=== PATIENT | male | born 1955 | race Caucasian/White ===

== ENCOUNTER 2019-05-28 11:10 | Inpatient (IN) ==
[2019-05-28] MEDS ORDERED: ATARAX PO PRN (12:52)
[2019-05-28] MEDS ORDERED: SINEMET 25/100 PO PRN (12:52)
[2019-05-28] MEDS ORDERED: ROBAXIN PO PRN (12:52)
[2019-05-28] MEDS ORDERED: MOTRIN PO PRN (12:52)
[2019-05-28] MEDS ORDERED: BENTYL PO PRN (12:52)
[2019-05-28] MEDS ORDERED: LIBRIUM PO PRN (12:52)
[2019-05-28] MEDS ORDERED: DULCOLAX PR PRN (12:52)
[2019-05-28] MEDS ORDERED: D5W 1,000 ML IV PRN (12:52)
[2019-05-28] MEDS ORDERED: TYLENOL PO PRN (12:52)
[2019-05-28] MEDS ORDERED: TUBERSOL ID ONE (12:52)
[2019-05-28] MEDS ORDERED: SEROQUEL PO PRN (12:52)
[2019-05-28] MEDS ORDERED: SENOKOT PO PRN (12:52)
[2019-05-28] MEDS ORDERED: MAALOX PLUS LIQUID PO PRN (12:52)
[2019-05-28] MEDS ORDERED: ZOFRAN IV PRN (12:52)
[2019-05-28] MEDS ORDERED: PHENOBARBITAL IV PRN (12:52)
[2019-05-28] MEDS ORDERED: IMODIUM PO PRN (12:52)
[2019-05-28] MEDS ORDERED: DESYREL PO PRN (12:52)
[2019-05-28] MEDS ORDERED: SUBOXONE 2 MG/0.5 MG FILM SL SCH (13:00)
[2019-05-28 14:30] LABS: AMYLASE 31 U/L (20-200); LIPASE 22 U/L (13-60)
[2019-05-28 14:44] LABS: AGAP 12; ALBUMIN 4.4 g/dL (3.5-5.0); ALKALINE PHOSPHATASE 69 U/L (32-122); BUN 23 mg/dL (8-22); CHLORIDE 100 mmol/L (98-107); COSMO 276; ESTIMATED GFR > 60; GLUCOSE 96 mg/dL (70-104); GOT 27 U/L (10-34); GPT 11 U/L (10-44); POTASSIUM 5.2 mmol/L (3.5-5.1); SODIUM 136 mmol/L (136-145); TCO2 23 mmol/L (25-35); TOTAL PROTEIN 7.6 g/dL (6.3-8.3)
[2019-05-28 14:52] LABS: UR AMPHETAMINES QUAL NONE DETECTED (NONE DETECT); UR BARBITUATES QUAL NONE DETECTED (NONE DETECT); UR BENZODIAZEPIN QUAL PRESUMPTIVE POSITIVE (NONE DETECT); UR CANNABINOIDS QUAL NONE DETECTED (NONE DETECT); UR COCAINE QUAL NONE DETECTED (NONE DETECT); UR METHADONE QUAL NONE DETECTED (NONE DETECT); UR METHAMPHETAMINE QUAL NONE DETECTED (NONE DETECT); UR OPIATES QUAL PRESUMPTIVE POSITIVE (NONE DETECT); UR OXYCODONE QUAL NONE DETECTED (NONE DETECT); UR PCP QUAL NONE DETECTED (NONE DETECT); UR PROPOXYPHENE QUAL NONE DETECTED (NONE DETECT); UR TCA QUAL NONE DETECTED (NONE DETECT)
[2019-05-28] MEDS: NICODERM PATCH TD PRN (15:28)
[2019-05-28 15:46] LABS: URINE SOURCE VOIDED
[2019-05-28 15:52] LABS: BILIRUBIN URINE NEGATIVE (NEGATIVE); BLOOD URINE NEGATIVE (NEGATIVE); GLUCOSE URINE NEGATIVE (NEGATIVE); KETONE URINE NEGATIVE (NEGATIVE); LEUKOCYTES URINE NEGATIVE (NEGATIVE); NITRITE URINE NEGATIVE (NEGATIVE); PH URINE 6.5; PROTEIN URINE NEGATIVE (NEGATIVE); UROBILINOGEN URINE NORMAL
[2019-05-28 15:53] LABS: CLARITY SL. CLOUDY (CLEAR); COLOR YELLOW
[2019-05-28 15:54] LABS: URINE BACTERIA 1+ /HFP; URINE CAST NONE SEEN /LPF; URINE CRYSTAL NONE SEEN /HPF; URINE EPITHELIAL CELLS <10 /HPF (<10); URINE YEAST NONE SEEN /HPF
[2019-05-29] MEDS: SUBOXONE 2 MG/0.5 MG FILM SL SCH ×2 (01:49→16:55)
[2019-05-29] MEDS: ZOFRAN ODT PO PRN ×2 (04:58→21:32)
[2019-05-29] MEDS: PROTONIX PO SCH ×2 (05:47→06:54)
[2019-05-29] MEDS ORDERED: NS 1,000 ML IV SCH (07:00)
[2019-05-29] MEDS ORDERED: THERA M PLUS PO SCH (09:00)
[2019-05-29] MEDS ORDERED: FOLIC ACID PO SCH (09:00)
[2019-05-29] MEDS ORDERED: VITAMIN B-1 PO SCH (09:00)
--- NOTE | 2019-05-29 09:56 | HISTORY AND PHYSICAL ---
HISTORY: Patient notes that he has been abusing opiates consistently for over 2 years. He has been trying to stop. He has been having nausea, vomiting, abdominal pain, and myalgias. He had to start reusing secondary to withdrawal symptoms. Denies any fevers or chills. SOCIAL HISTORY: Patient is single. He is on disability. Lives at home in [place]. PAST MEDICAL HISTORY: Chronic pain which is where he started using the opiates, and then began abusing. MEDICATIONS: He has no prescription medications. ALLERGIES: No known drug allergies. REVIEW OF SYSTEMS: CIMA score is 17 secondary to nausea, vomiting, and paresthesias, clammy skin, sniffling, watery eyes, frequently yawning, and unable to sit, fidgeting, constantly moving about. He notes that his symptoms are early. [*]the past 24 hours. States that if it goes much longer, the nausea and vomiting become severe with abdominal cramping and dry heaves. He notes that he starts sweating profusely until he uses. Denies any headaches or blurred vision. Denies any focalized numbness, tingling, or weakness in his extremities. Denies dysuria, urinary frequency, urgency, hesitancy, polyuria or polydipsia. Denies skin rashes, weight loss or weight gain. SUBSTANCE ABUSE HISTORY: The patient has never been in treatment facility before. He started drinking at 15. Currently, drinks only occasionally. Started marijuana at 16. Currently uses [*] He tried hallucinogens recreationally at 16. He has not used in 20 years. Started opiates after an injury at age 38. Currently, is up to 120 pills or so of oxycodone a month, and has been using 2 g a week of IV heroin. Started smoking at 16, and currently smokes 2 packs a day. FAMILY HISTORY: Noncontributory. PHYSICAL EXAMINATION: VITAL SIGNS: Reviewed and stable. He is awake and alert. He is in no distress. He is visibly sweating. He is moving about, and has difficulty concentrating. HEENT: Normocephalic. NECK: Supple. CARDIOVASCULAR: Regular rate. No murmurs. CHEST: Clear and nonlabored. ABDOMEN: Soft. Nondistended. EXTREMITIES: Moves all extremities. NEUROLOGIC: No changes. ASSESSMENT: 1. Nausea and vomiting. 2. Abdominal pain. 3. Myalgias. 4. Paresthesias. 5. Paroxysmal sweating. 6. Opiate abuse withdrawal and stabilization. 7. Chronic tobacco abuse. 8. Paroxysmal sweating. PLAN: Discussed with patient the perils of smoking as well as ways to stop. Discussed with him the use of Suboxone to alleviate his withdrawal symptoms. Discussed weaning off Suboxone for long- term use for withdrawal. Discussed outpatient counseling, avoidance etc. We will continue to follow. cc: Antonio Barahona MD
[2019-05-29] MEDS: NICODERM PATCH TD PRN (13:56)
--- NOTE | 2019-05-29 21:46 | PROGRESS NOTE ---
DATE: 05/29/2019 SUBJECTIVE: Patient notes he is feeling a little bit better. Denies any fevers or chills. Denies any chest pain or palpitations. PHYSICAL EXAMINATION: Vital Signs: Reviewed. Temperature 97.9, pulse 92, respiratory 18, BP 110/50. General: Patient is awake, alert, very pleasant, in no distress. HEENT: Normocephalic. Neck: Supple. Cardiovascular: Regular rate. No murmurs. Chest: Clear, nonlabored. Abdomen: Soft, nondistended. Extremities: Moves all extremities well. ASSESSMENT: 1. Nausea, vomiting and abdominal pain. 2. Myalgias. 3. Paresthesias. 4. Paroxysmal sweating. 5. Opiate abuse withdrawal and stabilization. PLAN: We will continue patient in the hospital and continue to follow. Continue Suboxone. Further orders as needed. Continue counseling. cc: Antonio Barahona MD
[2019-05-30] MEDS: SUBOXONE 2 MG/0.5 MG FILM SL SCH (05:38)
[2019-05-30] MEDS: PROTONIX PO SCH (06:15)
[2019-05-30] MEDS ORDERED: PNEUMOVAX 23 IM ONE (07:00)
[2019-05-30 08:05] VITALS: BP 106/53
--- NOTE | 2019-05-31 08:26 | DISCHARGE SUMMARY ---
ADMISSION DATE: 05/28/2019 DISCHARGE DATE: 05/30/2019 DISCHARGE DIAGNOSES: 1. The patient eloped. 2. Nausea and vomiting, resolved. 3. Myalgias, resolved. 4. Paresthesias, resolved. 5. Paroxysmal sweating, resolved. 6. Opiate abuse withdrawal and stabilization, the patient states improved. 7. Chronic pain. CONSULTATIONS: None. PROCEDURES: None. BRIEF HOSPITAL COURSE: The patient is a 64-year-old male who presented to [facility] secondary to nausea, vomiting, abdominal pain, and myalgias from chronic and continue heroin usage. The patient was placed on Suboxone, and was continued to wean down. The patient stated that he did not want to go home on Suboxone. The patient had zero complaints throughout the hospital stay until the final morning of the hospitalization. On that date, the patient stated that he did not want to take any more Suboxone because it made him worse, although previously he had been stating that it was making him feel better. He stated that it made him nauseated. He did state that he only took one strip the last time as he refused to take both. Oddly enough, there was only one scheduled to begin with. I spent slightly over 30 minutes discussing with the patient, opiate usage, heroin usage, outpatient counseling, life counseling. Discussed naltrexone for medication-assisted therapy. Discussed what to do if he gets home and withdrawal starts as he is going to wean down Suboxone very rapidly at this point from 2 mg to 0. The patient states that he is going home. He is not going to stay in the hospital any longer. I discussed with the patient to give us an hour so we can get the discharge planning done and to get him a prescription for naltrexone for medication- assisted therapy. The patient acknowledged and agreed. Interestingly though, however, after I exited from his room, the patient apparently eloped within the next 20 minutes. Therefore, no prescription was able to be done. No planning was able to be performed. cc: Antonio Barahona MD
== END 2019-05-30 08:30 | disposition left against medical advice (07) | DRG 894 ==
LOC: P.DIRADM 11:10 → P.MEDSURG 11:37
PROVIDERS: ADMIT Family Medicine; ATTEND Family Medicine
CPT/HCPCS: 80053; 80104; 80301; 80305; 80307; 80320; 81001; 82055; 82150; 83690; 85027; 85610; A9270; G0431; G0434; G0477; G0480; G6040